=== PATIENT | female | born 1980 | race Caucasian/White ===

== ENCOUNTER 2019-02-14 08:15 | Inpatient (IN) | payer OTHER ==
[~2019-02-14] VITALS: Ht 157.5 cm; Wt 66.7 kg
== END 2019-02-27 12:32 | disposition home or self-care (01) | DRG 785 ==
LOC: LDR 08:15 → SURG-SUITE 02-24 18:36
PROVIDERS: ADMIT Obstetrics & Gynecology Maternal & Fetal Medicine
PROC: 0UL70ZZ Occlusion of Bilateral Fallopian Tubes, Open Approach (ICD-10-PCS; 2019-02-24)
PROC: 0WQF0ZZ Repair Abdominal Wall, Open Approach (ICD-10-PCS; 2019-02-24)
PROC: 4A1HXCZ Monitoring of Products of Conception, Cardiac Rate, External Approach (ICD-10-PCS; 2019-02-24)
PROC: 10D00Z1 Extraction of Products of Conception, Low, Open Approach (ICD-10-PCS; principal; 2019-02-24 08:45)
DX: O82 Encounter for cesarean delivery without indication (principal); Z3A.38 38 weeks gestation of pregnancy; Z37.0 Single live birth; Z30.2 Encounter for sterilization; K42.9 Umbilical hernia without obstruction or gangrene; Z22.330 Carrier of Group B streptococcus

== ENCOUNTER 2019-03-22 15:47 | Outpatient (CLI) | payer OTHER | END 2019-03-22 15:59 | disposition home or self-care (01) | LOC: LAB 15:47 | DX: R10.31 Right lower quadrant pain (principal); Z51.81 Encounter for therapeutic drug level monitoring ==

== ENCOUNTER 2019-03-24 08:14 | Outpatient (CLI) | payer OTHER | END 2019-03-24 16:22 | disposition home or self-care (01) | LOC: TOM 08:14 | DX: R10.31 Right lower quadrant pain (principal) ==

== ENCOUNTER 2019-04-26 09:28 | Emergency (ER) | payer OTHER ==
[~2019-04-26] VITALS: Ht 157.5 cm; Wt 54.4 kg
== END 2019-04-26 12:48 | disposition home or self-care (01) ==
LOC: ER 09:28
DX: R10.2 Pelvic and perineal pain (principal)

== ENCOUNTER 2023-08-05 09:26 | Outpatient (CLI) | payer OTHER | END 2023-08-05 09:33 | disposition home or self-care (01) | LOC: RAD 09:26 | PROVIDERS: ATTEND Orthopaedic Surgery | DX: S42.414D Nondisplaced simple supracondylar fracture without intercondylar fracture of right humerus, subsequent encounter for fracture with routine healing (principal) ==

== ENCOUNTER 2023-09-10 08:27 | Outpatient (CLI) | payer OTHER | END 2023-09-10 08:29 | disposition home or self-care (01) | LOC: RAD 08:27 | PROVIDERS: ATTEND Orthopaedic Surgery | DX: S42.414D Nondisplaced simple supracondylar fracture without intercondylar fracture of right humerus, subsequent encounter for fracture with routine healing (principal) ==